=== PATIENT | male | born 1960 | race Caucasian/White ===

== ENCOUNTER 2019-12-12 10:19 | Emergency (ER) | payer OTHER ==
[~2019-12-12] VITALS: Ht 177.8 cm; Wt 67.6 kg
[2019-12-12 10:37] VITALS: BP 121/81
--- NOTE | 2019-12-12 10:37 | NUR ---
ED Nurse Note: PT CAME IN DUE TO WONG REMOVAL. PT HAD HERNIA SURGERY AND HAS BILATERAL WONG ON LOWER ABD. SURGERY DONE 10 WEEKS AGO AND UNABLE TO REMEMBER NAME OF HOSPITAL. PT C/O PAIN ON LEFT SIDE WONG.
[2019-12-12] MEDS ORDERED: traMADol 50mg tab ORAL ONE (10:45)
[2019-12-12 10:53] VITALS: BP 126/80
--- NOTE | 2019-12-12 10:53 | NUR ---
AMA: SEE AMA FORM.
--- NOTE | 2019-12-12 10:56 | Emergency Room Report ---
History of Present Illness General Chief Complaint: Wound Recheck/Suture Removal Source: Patient Present Illness HPI Patient is a 59-year-old male past medical history of heart disease and status post inguinal hernia repair 10 weeks ago at an outside facility who presents to the ER requesting to get his bertram taken out. Patient denies any fever or chills. He is requesting to be "knocked out" for the suture removal. I explained to him that we can give him pain medication but we will not be doing sedation to remove bertram. Patient denies any fever or chills. Patient denies any chest pain or shortness of breath. Allergies: Coded Allergies: ASPIRIN (Verified Allergy, Unknown, 12/12/19) IBUPROFEN (Verified Allergy, Unknown, 12/12/19) NAPROXEN (Verified Allergy, Unknown, 12/12/19) PENICILLINS (Verified Allergy, Unknown, 12/12/19) Uncoded Allergies: SEAFOOD (Allergy, Unknown, 12/12/19) Patient History Past Medical History: CAD Past Surgical History: other - inguinal hernia repair 10 weeks ago Reviewed Nursing Documentation: PMH: Agreed; PSxH: Agreed Nursing Documentation-PMH Hx Cardiac Problems: Yes Hx Hypertension: Yes Hx Asthma: Yes Review of Systems All Other Systems: negative except mentioned in HPI Physical Exam Vital Signs Date Time Temp Pulse Resp B/P (MAP) Pulse Ox O2 Delivery O2 Flow Rate FiO2 12/12/19 10:31 98.4 72 15 121/81 (94) 96 Room Air Sp02 EP Interpretation: reviewed, normal General Appearance: no apparent distress, alert, GCS 15, non-toxic, other - poorly groomed Head: normocephalic, atraumatic Eyes: bilateral eye normal inspection, bilateral eye PERRL ENT: hearing grossly normal, normal pharynx, no angioedema, normal voice Neck: full range of motion, supple/symm/no masses Respiratory: chest non-tender, lungs clear, normal breath sounds, speaking full sentences Cardiovascular #1: regular rate, rhythm, no edema Gastrointestinal: normal bowel sounds, non tender, soft, non-distended, no guarding, no rebound, other - Bilateral inguinal surgical incision sites approximately 10 cm with bertram in place well-healed incision site with no discharge or erythema Rectal: deferred Genitourinary: normal inspection, no CVA tenderness Musculoskeletal: back normal, normal range of motion, calf tenderness, gait/ station normal, non-tender Neurologic: alert, motor strength/tone normal, oriented x3, sensory intact, responsive, speech normal Skin: no rash Lymphatic: no adenopathy Medical Decision Making Diagnostic Impression: Primary Impression: Encounter for removal of sutures ER Course Patient requesting pain medication. I gave him 50 mg of oral tramadol patient states that he will not have the sutures removed unless he is under anesthesia. I explained to him as well as the nurse that this is not what we will be doing for staple removal. The patient is of adult age and has sound mind with no evidence of altered mental status suggesting metabolic or infections etiologies. I explained in layman's terms the risk of leaving against medical advise including and significant comorbidity. The patient was given reasonable options. This was explained in front of the patient and the bedside nurse RN. The AMA for was signed and witnessed by a nurse and patient. Last Vital Signs Date Time Temp Pulse Resp B/P (MAP) Pulse Ox O2 Delivery O2 Flow Rate FiO2 12/12/19 10:49 98.4 12/12/19 10:37 7 15 121/81 96 Room Air Disposition: AGAINST MEDICAL ADVICE Condition: Unknown Referrals: [facility] Pamela Nevarez. [facility] Miya Ramirez M.D. Dec 12, 2019 10:56
== END 2019-12-12 15:03 | disposition left against medical advice (07) ==
LOC: EDSEX 10:19 → EMR 10:55
DX: Z48.02 Encounter for removal of sutures (principal); Z53.29 Procedure and treatment not carried out because of patient's decision for other reasons; I25.10 Atherosclerotic heart disease of native coronary artery without angina pectoris; I10 Essential (primary) hypertension; J45.909 Unspecified asthma, uncomplicated; Z98.890 Other specified postprocedural states; Z88.0 Allergy status to penicillin; Z88.6 Allergy status to analgesic agent; Z91.013 Allergy to seafood
CPT/HCPCS: 99282